=== PATIENT | female | born 1985 | race Caucasian/White ===

== ENCOUNTER 2018-01-21 00:02 | Emergency (ER) | payer OTHER ==
[~2018-01-21] VITALS: Ht 165.1 cm; Wt 72.3 kg
[~2018-01-21 00:02] MED LIST: ADDERAL PO; ADDERALL; DIVALPROEX SOD250 MG PO; ESCITALOPRAM OX10 MG PO; FLEXERIL5 MG PO; FLUOXETINE HCL20 M1 PO; INDOCIN25 MG PO; MACROBID100 MG PO; MELATONIN300 MCG PO; MIDOL COMPLETE1 EACH PO; MOBIC15 MG PO; MOTRIN600 MG PO; NORCO 5/3251 TABLET PO; PRISTIQ50 MG PO; TRAMADOL HCL50 MG PO; TRAZODONE HCL50 MG PO; VALIUM5 MG PO; VICODIN,LORT1 TABLET PO; pristiq
[2018-01-21 00:44] LABS: BASOPHIL (%) 0.5 % (0-1); BASOPHIL COUNT 0.1 K/uL (0-0.1); EOSINOPHIL (%) 0.7 % (0-5); EOSINOPHIL COUNT 0.1 K/uL (0-0.3); HEMATOCRIT 37.5 % (36.0-46.0); HEMOGLOBIN 13.3 G/DL (11.9-15.5); IMMATURE GRANULOCYTE (%) 0.4 % (0.0-0.7); LYMPHOCYTE (%) 27.5 % (15-42); LYMPHOCYTE COUNT 2.7 K/uL (1.0-2.8); MCH 33.2 PG (29.0-34.0); MCHC 35.5 G/DL (30.0-36.0); MCV 93.5 FL (83-99); MONOCYTE COUNT 0.5 K/uL (0-0.8); NEUTROPHIL (%) 65.9 % (45-76); NEUTROPHIL COUNT 6.4 K/uL (1.8-6.4); PLATELET COUNT 212 K/uL (156-360); RBC DIS.WIDTH-CV 12.5 % (11.8-14.6); RBC DIS.WIDTH-SD 43.5 % (39-53); RED BLOOD COUNT 4.01 M/uL (3.80-5.20); WHITE BLOOD COUNT 9.7 K/uL (4.1-10.2)
[2018-01-21 00:52] LABS: ALBUMIN 4.1 g/dL (3.2-4.8); CHLORIDE 110 mEq/L (99-109); POTASSIUM 3.4 mEq/L (3.7-5.4); SODIUM 142 mEq/L (136-147)
[2018-01-21 00:54] LABS: GLUCOSE 104 mg/dL (70-99); TOTAL PROTEIN 6.7 g/dL (6.4-8.3)
[2018-01-21 00:56] LABS: TOTAL BILIRUBIN 0.4 mg/dL (0.0-1.0)
[2018-01-21 00:57] LABS: SERUM ETHYL ALCOHOL 93 mg/dL
[2018-01-21 00:58] LABS: GFR ESTIMATE (CALCULATED) > 59 mL/min/
[2018-01-21 00:59] LABS: ALKALINE PHOSPHATASE 81 IU/L (3-129); AST (GOT) 15 IU/L (2-34)
[2018-01-21 01:00] LABS: UREA NITROGEN (BUN) 10 mg/dL (9-23)
[2018-01-21 01:01] LABS: SALICYLATE < 5.0 MG/DL (15-30)
[2018-01-21 01:02] LABS: ACETAMINOPHEN (TYLENOL) < 10 mcg/mL (10-30); ALT (GPT) 6 IU/L (3-49)
[2018-01-21 01:08] LABS: QUANTITATIVE HCG < 4.0 MIU/ML
[2018-01-21 04:06] VITALS: BP 120/68
== END 2018-01-21 04:09 | disposition home or self-care (01) ==
LOC: EME 00:02
PROVIDERS: Emergency Medicine
PROC: 2W3RX1Z Immobilization of Left Lower Leg using Splint (ICD-10-PCS; principal; 2018-01-21)
DX: F14.20 Cocaine dependence, uncomplicated (principal); F10.20 Alcohol dependence, uncomplicated; S99.922A Unspecified injury of left foot, initial encounter; R07.89 Other chest pain; Y90.4 Blood alcohol level of 80-99 mg/100 ml; F32.9 Major depressive disorder, single episode, unspecified; F41.9 Anxiety disorder, unspecified; F90.9 Attention-deficit hyperactivity disorder, unspecified type; F17.200 Nicotine dependence, unspecified, uncomplicated
CPT/HCPCS: 71046; 73630; 80053; 81003; 84702; 85025; 90839; 93005; G0480